=== PATIENT | male | born 1980 | race Caucasian/White ===

== ENCOUNTER 2017-11-04 12:06 | Emergency (ER) | payer BC ==
[2017-11-04 12:11] VITALS: BP 129/79; PULSE 86; RESP 16; TEMP 98.8
[2017-11-04] MEDS ORDERED: ORPHENADRINE 30 MG/ML 2 ML VIAL IM STA (12:18)
[2017-11-04] MEDS ORDERED: KETOROLAC 60 MG/2 ML VIAL IM STA (12:18)
--- NOTE | 2017-11-04 12:35 | ED ---
General Adult HPI - General Chief complaint: Back Pain/Injury Stated complaint: Back injury Time Seen by Provider: 11/04/17 12:15 Source: patient, RN notes reviewed Mode of arrival: ambulatory Limitations: no limitations - History of Present Illness Initial comments: 36 yo male presents to the ER with cc of low back pain after shoveling. He states he was shoveling after he felt some low back pain. He does chronically suffer from back issues in the bases is much like how his back typically flares up. Little band across the back of his lower back. There is no loss of consciousness. No numbness or tingling no changes in bowel or bladder habits anesthesia.He states that he was concerned due to his continued discomfort so he thought that he should be evaluated. Patient denies any recent fever, chills , shortness of breath, chest pain, abdominal pain, nausea vomiting, numbness or tingling, dysuria or hematuria, constipation or diarrhea, headaches or visual changes, or any other current symptoms. - Related Data Home Medications Medication Instructions Recorded Confirmed Albuterol Nebulized [Ventolin 2.5 mg INHALATION RT-TID PRN 08/26/16 08/26/16 Nebulized] Varenicline [Chantix] 0.5 mg PO BID 08/26/16 08/26/16 Previous Rx's Medication Instructions Recorded Ibuprofen [Motrin] 600 mg PO Q6HR PRN #40 day 08/26/16 Ibuprofen [Motrin] 600 mg PO Q6HR PRN #20 tab 11/04/17 Orphenadrine [Norflex] 100 mg PO Q12H #10 tablet.er 11/04/17 Allergies Allergy/AdvReac Type Severity Reaction Status Date / Time No Known Allergies Allergy Verified 11/04/17 12:09 Review of Systems ROS Statement: Those systems with pertinent positive or pertinent negative responses have been documented in the HPI. ROS Other: All systems not noted in ROS Statement are negative. Past Medical History Past Medical History: No Reported History Additional Past Medical History / Comment(s): back pain History of Any Multi-Drug Resistant Organisms: None Reported Past Surgical History: No Surgical Hx Reported Past Psychological History: No Psychological Hx Reported Smoking Status: Current every day smoker Past Alcohol Use History: None Reported Past Drug Use History: None Reported General Exam Limitations: no limitations General appearance: alert, in no apparent distress ENT exam: Present: normal exam, mucous membranes moist Neck exam: Present: normal inspection. Absent: tenderness, meningismus, lymphadenopathy Respiratory exam: Present: normal lung sounds bilaterally. Absent: respiratory distress, wheezes, rales, rhonchi, stridor Cardiovascular Exam: Present: regular rate, normal rhythm, normal heart sounds. Absent: systolic murmur, diastolic murmur, rubs, gallop, clicks Extremities exam: Present: normal inspection, full ROM, normal capillary refill. Absent: tenderness, pedal edema, joint swelling, calf tenderness Back exam: Present: normal inspection, full ROM, paraspinal tenderness (lumbar bialteral). Absent: rash noted Neurological exam: Present: alert, oriented X3 Psychiatric exam: Present: normal affect, normal mood Skin exam: Present: warm, dry, intact, normal color. Absent: rash Course Vital Signs 11/04/17 12:09 Temperature 98.8 F Pulse Rate 86 Respiratory 16 Rate Blood Pressure 129/79 O2 Sat by Pulse 97 Oximetry Medical Decision Making - Medical Decision Making 36-year-old male presents with what appears to be a lumbar strain. At this time patient was given medications x-rays reviewed. We discussed follow-up and return parameters all questions. Patient stated that he understood and he is agreement this plan. All questions have been answered. At this time the patient will be discharged. - Radiology Data Radiology results: report reviewed, image reviewed Disposition Clinical Impression: Lumbar strain Disposition: HOME SELF-CARE Condition: Stable Instructions: Lower Back Exercises (ED), Core Strengthening Exercises (ED) Additional Instructions: Please use medication as discussed. Please follow up with family doctor if symptoms have not improved over the next two days. Please return to the emergency room if your symptoms increase or worsen or for any other concerns. Prescriptions: Ibuprofen [Motrin] 600 mg PO Q6HR PRN #20 tab PRN Reason: Pain Orphenadrine [Norflex] 100 mg PO Q12H #10 tablet.er Referrals: Ramila Talavera MD [Primary Care Provider] - 1-2 days Time of Disposition: 12:47
--- NOTE | 2017-11-04 12:45 | XR ---
EXAMINATION TYPE: XR lumbar spine 2 or 3V DATE OF EXAM: 11/04/2017 CLINICAL HISTORY: pain TECHNIQUE: Three views of the lumbar spine are submitted. COMPARISON: None. FINDINGS: There are 5 lumbar type vertebral bodies identified. The lumbar spine shows satisfactory alignment w ithout evidence of acute fracture or dislocation. Vertebral body heights are within normal limits. Disc spaces are within normal limits. Mild scattered ventral spondylosis noted. The overlying soft ti ssue appears unremarkable. IMPRESSION: No acute fracture or dislocation is seen in the lumbar spine. ICD 10 NO FRACTURE, INITIAL EVALUATION
== END 2017-11-04 12:51 | disposition home or self-care (01) ==
LOC: EC 12:06
DX: S39.012A Strain of muscle, fascia and tendon of lower back, initial encounter (principal); F17.200 Nicotine dependence, unspecified, uncomplicated; Z79.899 Other long term (current) drug therapy; Y93.H1 Activity, digging, shoveling and raking
CPT/HCPCS: 72100; 99283; 96372 ×2; J2360; J1885

== ENCOUNTER 2019-01-01 18:45 | Emergency (ER) | payer BC, OTHER ==
[2019-01-01 18:55] VITALS: BP 142/96; PULSE 88; RESP 18; TEMP 97.9
--- NOTE | 2019-01-01 19:56 | XR ---
EXAMINATION TYPE: XR hand complete LT, XR wrist complete LT DATE OF EXAM: 01/01/2019 CLINICAL HISTORY: Pain and swelling of the left hand and wrist after injury. Pain is worse in the sec ond and third fingers. TECHNIQUE: Frontal, lateral and oblique images of the left hand and wrist are obtained. Scaphoid vie w was also obtained. COMPARISON: None. FINDINGS: There is a comminuted fracture of the distal tuft of the third digit as well as a lesser de gree of the second digit of the left hand. Mild overlying soft tissue swelling is noted. These fractu res are comminuted but only minimally nondisplaced (1 mm). No radiopaque foreign body. There is no a cute fracture/dislocation evident in the main left hand and wrist. The joint spaces in the left hand and wrist appear within normal limits. The overlying soft tissue appears unremarkable. IMPRESSION: Comminuted minimally displaced fractures of the left distal jade of the second and third distal phalanges with overlying soft tissue swelling.
--- NOTE | 2019-01-01 20:37 | ED ---
General Adult HPI - General Chief complaint: Extremity Injury, Upper Stated complaint: Wrist injury Time Seen by Provider: 01/01/19 19:02 Source: patient, RN notes reviewed, old records reviewed Mode of arrival: ambulatory Limitations: no limitations - History of Present Illness Initial comments: 38-year-old male patient no pertinent past medical history presents to ED with pain in his wrist. Patient was involved in occupational injury on Thursday12/27/18. Patient reports that his left hand was caught in a piece of machinery resulting in a laceration to his second and third distal phalanx. Patient also reportedly had minimally displaced fractures of distal tuft of second third distal phalanx. Patient had these sutures and splinted at [facility]. Patient has an appointment to see an orthopedic surgeon next week. Patient presents today because he now has pain in the dorsal aspect of his left wrist. Patient wants to ensure that there not any additional fractures that were missed. Patient denies any other complaints. Systemic: Pt denies fatigue, fever/chills, rash. Pt denies weakness, night sweats, weight loss. Neuro: Pt denies headache, visual disturbances, syncope or pre-syncope. HEENT: Pt denies ocular discharge or irritation, otalgia, rhinorrhea, pharyngitis or notable lymphadenopathy. Cardiopulmonary: Pt denies chest pain, SOB, heart palpitations, dyspnea on exertion. Abdominal/GI: Pt denies abdominal pain, n/v/d. : Pt denies dysuria, burning w/ urination, frequency/urgency. Denies new onset urinary or bowel incontinence. MSK: Pt denies loss of strength or function in extremities. Neuro: Pt denies new onset weakness, paresthesias. - Related Data Home Medications Medication Instructions Recorded Confirmed Albuterol Nebulized [Ventolin 2.5 mg INHALATION RT-TID PRN 08/26/16 08/26/16 Nebulized] Varenicline [Chantix] 0.5 mg PO BID 08/26/16 08/26/16 Previous Rx's Medication Instructions Recorded Ibuprofen [Motrin] 600 mg PO Q6HR PRN #40 day 08/26/16 Ibuprofen [Motrin] 600 mg PO Q6HR PRN #20 tab 11/04/17 Orphenadrine [Norflex] 100 mg PO Q12H #10 tablet.er 01/10/18 Allergies Allergy/AdvReac Type Severity Reaction Status Date / Time No Known Allergies Allergy Verified 01/01/19 18:55 Review of Systems ROS Statement: Those systems with pertinent positive or pertinent negative responses have been documented in the HPI. ROS Other: All systems not noted in ROS Statement are negative. Past Medical History Past Medical History: No Reported History Additional Past Medical History / Comment(s): back pain History of Any Multi-Drug Resistant Organisms: None Reported Past Surgical History: No Surgical Hx Reported Past Psychological History: No Psychological Hx Reported Smoking Status: Current every day smoker Past Alcohol Use History: None Reported Past Drug Use History: None Reported General Exam - General Exam Comments Initial Comments: Constitutional: NAD, AOX3, Pt has pleasant affect. HEENT: NC/AT, trachea midline, neck supple, no lymphadenopathy. Posterior pharynx non erythematous, without exudates. External ears appear normal, without discharge. Mucous membranes moist. Eyes PERRLA, EOM intact. There is no scleral icterus. No pallor noted. Cardiopulmonary: RRR, no murmurs, rubs or gallops, no JVD noted. Lungs CTAB in anterior and posterior morelos. No peripheral edema. Abdominal exam: Abdomen soft and non-distended. Abdomen non-tender to palpation in all 4 quadrants. Bowel sounds active in LLQ. No hepatosplenomegaly. No ecchymosis Neuro: CN II-XII grossly intact. No nuchal rigidity. MSK: Dorsal aspect of left wrist mild tenderness to palpation. No edema or ecchymoses. No snuffbox tenderness. Full active range of motion. Laceration sites appear clean, sutures intact, no signs of infection. Full active range of motion of digits. Patient placed in straight finger splint. Neuro vascular intact after splint placement. No posterior calf tenderness bilaterally, homans sign negative bilaterally. Posterior tibialis and radial pulse +2 bilaterally. Sensation intact in upper and lower extremities. Full active ROM in upper and lower extremities, 5/5 stregnth. Limitations: no limitations Course Vital Signs 01/01/19 18:52 Temperature 97.9 F Pulse Rate 88 Respiratory 18 Rate Blood Pressure 142/96 O2 Sat by Pulse 98 Oximetry Medical Decision Making - Medical Decision Making 38-year-old male patient no pertinent past medical history presents to ED with pain in his wrist. Patient was involved in occupational injury on Thursday12/27/18. Patient reports that his left hand was caught in a piece of machinery resulting in a laceration to his second and third distal phalanx. Patient also reportedly had minimally displaced fractures of distal tuft of second third distal phalanx. Patient had these sutures and splinted at [facility]. Patient has an appointment to see an orthopedic surgeon next week. Patient presents today because he now has pain in the dorsal aspect of his left wrist. Patient wants to ensure that there not any additional fractures that were missed. Patient denies any other complaints. Patient vital signs stable, afebrile. Physical exam displayed: Dorsal aspect of left wrist mild tenderness to palpation. No edema or ecchymoses. No snuffbox tenderness. Full active range of motion. Laceration sites appear clean, sutures intact, no signs of infection. Full active range of motion of digits. Patient placed in straight finger splint. Neuro vascular intact after splint placement. Plain film of left hand and wrist displayed comminuted minimally displaced fracture of left distal jade of the second third distal phalanx overlying soft tissue swelling. Patient placed in straight finger splint on second and third digits. Neuro vascular intact after splint placement. Patient has follow-up scheduled orthopedic surgeon next week. Patient to return to ED if descends symptoms develop or if condition worsens in any way. Case dsicussed with Dr. Jauregui. Disposition Clinical Impression: Phalanx, distal fracture of finger Disposition: HOME SELF-CARE Condition: Stable Instructions (If sedation given, give patient instructions): Finger Fracture (ED) Additional Instructions: Patient to adhere to previously discussed treatment plan and will take medication(s) as directed. Patient to follow up with PCP in 1-2 days. Patient to return to ED if symptoms do not improve. Please follow-up with primary care provider in 1-2 days. Please follow-up with occupational health. Please attend scheduled follow up with orthopedic surgeon. Return to ED if condition worsens in anyway. Continue taking keflex. Is patient prescribed a controlled substance at d/c from ED?: No Referrals: Ramila Talavera MD [Primary Care Provider] - 1-2 days
== END 2019-01-01 20:44 | disposition home or self-care (01) ==
LOC: EC 18:45
DX: S62.631A Displaced fracture of distal phalanx of left index finger, initial encounter for closed fracture (principal); S62.633A Displaced fracture of distal phalanx of left middle finger, initial encounter for closed fracture; F17.200 Nicotine dependence, unspecified, uncomplicated; Z79.899 Other long term (current) drug therapy; W31.9XXA Contact with unspecified machinery, initial encounter; Y92.69 Other specified industrial and construction area as the place of occurrence of the external cause; Y99.0 Civilian activity done for income or pay
CPT/HCPCS: 99284

== ENCOUNTER → 2019-04-01 | Outpatient (CLI) | payer BC ==
--- NOTE | 2019-04-01 13:48 | ECHOF ---
Referral Reason:R94.31 Abnormal EKG; R42 dizziness MEASUREMENTS -------- HEIGHT: 182.9 cm WEIGHT: 122.5 kg BP: 124/74 RVIDd: 3.0 cm (< 3.3) IVSd: 1.1 cm (0.6 - 1.1) LVIDd: 5.4 cm (3.9 - 5.3) LVPWd: 1.1 cm (0.6 - 1.1) IVSs: 1.7 cm LVIDs: 3.2 cm LVPWs: 2.0 cm LA Diam: 3.5 cm (2.7 - 3.8) LAESV Index (A-L): 17.61 ml/m Ao Diam: 3.3 cm (2.0 - 3.7) AV Cusp: 2.4 cm (1.5 - 2.6) MV EXCURSION: 25.683 mm (> 18.000) MV EF SLOPE: 236 mm/s (70 - 150) EPSS: 1.2 cm MV E Segundo: 0.72 m/s MV DecT: 319 ms MV A Segundo: 0.57 m/s MV E/A Ratio: 1.27 FINDINGS -------- Sinus rhythm. This was a technically good study. The left ventricular size is normal. There is borderline concentric left ventricular hypertrophy. Overall left ventricular systolic function is normal with, an EF between 60 - 65 %. The right ventricle is normal in size. Normal LA size by volume 22+/-6 ml/m2. The right atrium is normal in size. Interatrial and interventricular septum intact. The aortic valve is trileaflet and appears structurally normal. There is trace mitral regurgitation. The tricuspid valve appears structurally normal. There is no pulmonic regurgitation present. The aortic root size is normal. Normal inferior vena cava with normal inspiratory collapse consistent with estimated right atrial pre ssure of 5 mmHg. There is no pericardial effusion. CONCLUSIONS -------- 1. Sinus rhythm. 2. This was a technically good study. 3. The left ventricular size is normal. 4. There is borderline concentric left ventricular hypertrophy. 5. Overall left ventricular systolic function is normal with, an EF between 60 - 65 %. 6. The right ventricle is normal in size. 7. Normal LA size by volume 22+/-6 ml/m2. 8. The right atrium is normal in size. 9. Interatrial and interventricular septum intact. 10. The aortic valve is trileaflet and appears structurally normal. 11. There is trace mitral regurgitation. 12. The tricuspid valve appears structurally normal. 13. There is no pulmonic regurgitation present. 14. The aortic root size is normal. 15. Normal inferior vena cava with normal inspiratory collapse consistent with estimated right atrial pressure of 5 mmHg. 16. There is no pericardial effusion. CHANNEL PROCESS PLANT OPERATOR: Mago Brown RDCS
== END | disposition home or self-care (01) ==
LOC: RADECHMAIN 10:23
PROVIDERS: ATTEND Internal Medicine
DX: I51.7 Cardiomegaly (principal); R42 Dizziness and giddiness; R94.31 Abnormal electrocardiogram [ECG] [EKG]
CPT/HCPCS: 93306

== ENCOUNTER 2021-06-22 11:00 | Emergency (ER) | payer OTHER ==
[2021-06-22 11:14] VITALS: BP 149/85; PULSE 100; RESP 20; TEMP 98.4
[2021-06-22] MEDS ORDERED: LIDOCAINE 1% INJ 10MG/ML (20 ML MDV) SQ STA (11:34)
[2021-06-22] MEDS ORDERED: DIPH,PERTUS(ACELL)TETVAC-LF 0.5 ML VIAL IM ONE (11:34)
--- NOTE | 2021-06-22 12:15 | XR ---
Left elbow HISTORY: Pain, laceration, trauma 3 views of left elbow There is no evident joint effusion. No radiopaque foreign body. Bone mineralization, joint spaces and alignment are maintained. Lucency in the soft tissues consistent with patient's history of lacsharono n. IMPRESSION: No fracture or dislocation.
--- NOTE | 2021-06-22 12:51 | ED ---
General Adult HPI - General Chief complaint: Wound/Laceration Stated complaint: Lt Arm Laceration Time Seen by Provider: 06/22/21 11:16 Source: patient, RN notes reviewed Mode of arrival: ambulatory Limitations: no limitations - History of Present Illness Initial comments: 40-year-old male presents to the emergency room for a chief complaint of elbow pain. Patient slipped at the boat launch and fell on the left elbow. Patient states he did cut his elbow. Patient did not hit his head. He does admit to small amount of pain in the elbow.Patient has no other complaints at this time including shortness of breath, chest pain, abdominal pain, nausea or vomiting, headache, or visual changes. - Related Data Home Medications Medication Instructions Recorded Confirmed Albuterol Nebulized [Ventolin 2.5 mg INHALATION RT-TID PRN 08/26/16 08/26/16 Nebulized] Varenicline [Chantix] 0.5 mg PO BID 08/26/16 08/26/16 Previous Rx's Medication Instructions Recorded Ibuprofen [Motrin] 600 mg PO Q6HR PRN #40 day 08/26/16 Ibuprofen [Motrin] 600 mg PO Q6HR PRN #20 tab 11/04/17 Orphenadrine [Norflex] 100 mg PO Q12H #10 tablet.er 11/04/17 Allergies Allergy/AdvReac Type Severity Reaction Status Date / Time No Known Allergies Allergy Verified 06/22/21 11:13 Review of Systems ROS Statement: Those systems with pertinent positive or pertinent negative responses have been documented in the HPI. ROS Other: All systems not noted in ROS Statement are negative. Past Medical History Past Medical History: No Reported History Additional Past Medical History / Comment(s): back pain History of Any Multi-Drug Resistant Organisms: None Reported Past Surgical History: No Surgical Hx Reported Past Psychological History: No Psychological Hx Reported Smoking Status: Current every day smoker Past Alcohol Use History: None Reported Past Drug Use History: None Reported General Exam Limitations: no limitations General appearance: alert, in no apparent distress Head exam: Present: atraumatic Eye exam: Present: normal appearance, PERRL, EOMI. Absent: scleral icterus, conjunctival injection ENT exam: Present: normal exam, mucous membranes moist Neck exam: Present: normal inspection, full ROM. Absent: tenderness Respiratory exam: Present: normal lung sounds bilaterally. Absent: respiratory distress, wheezes Cardiovascular Exam: Present: regular rate, normal rhythm, normal heart sounds Extremities exam: Present: full ROM (Range of motion of the left elbow), tenderness (Tenderness to the medial malleolus of the left elbow), normal capillary refill (Capillary refill less than 2 second radial pulse 2+ and upper extremity), other (Sensation intact of upper extremity) Course Vital Signs 06/22/21 11:12 Temperature 98.4 F Pulse Rate 100 Respiratory 20 Rate Blood Pressure 149/85 O2 Sat by Pulse 99 Oximetry Procedures - Laceration Laceration #1 Consent Obtained: verbal consent Indication: laceration Site: upper extremity (4) Size (cm): 3 Description: linear Depth: simple, single layer Anesthetic Used: lidocaine 1% Anesthesia Technique: local infiltration Amount (mls): 6 Pre-repair: wound explored, irrigated extensively Type of Sutures: nylon Size of Sutures: 4-0 Number of Sutures: 6 Technique: simple, interrupted Patient Tolerated Procedure: well, no complications Medical Decision Making - Medical Decision Making X-ray negative for fracture. Laceration irrigated and repaired. parameters discussed for returning for suture removal as well as care. Disposition Clinical Impression: Laceration Disposition: HOME SELF-CARE Condition: Good Instructions (If sedation given, give patient instructions): Care For Your Stitches (ED), Laceration (ED) Additional Instructions: Please follow-up with your doctor in one to 2 days. Return to the emergency room for any worsening symptoms. Return in 10 days for suture removal Is patient prescribed a controlled substance at d/c from ED?: No Referrals: Carlo Negron MD [Primary Care Provider] - 1-2 days Time of Disposition: 12:50
== END 2021-06-22 13:00 | disposition home or self-care (01) ==
LOC: EC 11:00
DX: S51.012A Laceration without foreign body of left elbow, initial encounter (principal); F17.200 Nicotine dependence, unspecified, uncomplicated; Z23 Encounter for immunization; W01.0XXA Fall on same level from slipping, tripping and stumbling without subsequent striking against object, initial encounter; Y92.814 Boat as the place of occurrence of the external cause
CPT/HCPCS: 73080; 90715; 12002; 90471; 99284; J2001

== ENCOUNTER → 2021-12-27 | Outpatient (CLI) | payer BC | END | disposition home or self-care (01) | LOC: LABWHC1 14:49 | PROVIDERS: ATTEND Family Medicine | DX: R07.9 Chest pain, unspecified (principal) | CPT/HCPCS: 36415; 93005 ==

== ENCOUNTER → 2022-01-27 | Outpatient (CLI) | payer BC ==
--- NOTE | 2022-01-27 12:26 | ECHOF ---
Referral Reason:R03.0, H53.9, R07.9 MEASUREMENTS -------- HEIGHT: 195.6 cm WEIGHT: 124.7 kg BP: RVIDd: 2.7 cm (< 3.3) IVSd: 1.1 cm (0.6 - 1.1) LVIDd: 4.9 cm (3.9 - 5.3) LVPWd: 1.2 cm (0.6 - 1.1) IVSs: 1.7 cm LVIDs: 3.3 cm LVPWs: 1.9 cm LA Diam: 3.0 cm (2.7 - 3.8) Ao Diam: 3.5 cm (2.0 - 3.7) AV Cusp: 1.5 cm (1.5 - 2.6) MV EXCURSION: 17.007 mm (> 18.000) MV EF SLOPE: 60 mm/s (70 - 150) EPSS: 0.9 cm MV E Segundo: 0.74 m/s MV DecT: 148 ms MV A Segundo: 0.68 m/s MV E/A Ratio: 1.09 FINDINGS -------- Sinus rhythm. This was a technically difficult study with suboptimal views. The left ventricular size is normal. There is borderline concentric left ventricular hypertrophy. Overall left ventricular systolic function is normal with, an EF between 55 - 60 %. The right ventricle is normal in size. The left atrial size is normal. The right atrium was not well visualized. 3 ml of Lumason was utilized for enhancement of images. The aortic valve was not well visualized. The mitral valve was not well visualized. The tricuspid valve was not well visualized. Unable to estimate RVSP due to inadequate TR jet spect ral doppler profile. The pulmonic valve was not well visualized. The aortic root size is normal. Normal inferior vena cava with normal inspiratory collapse consistent with estimated right atrial pre ssure of 5 mmHg. There is no pericardial effusion. CONCLUSIONS -------- 1. This was a technically difficult study with suboptimal views. 2. There is borderline concentric left ventricular hypertrophy. 3. Overall left ventricular systolic function is normal with, an EF between 55 - 60 %. 4. 3 ml of Lumason was utilized for enhancement of images. 5. The aortic valve was not well visualized. 6. There is no pericardial effusion. MANAGER EMPLOYEE RELATIONS: Mago Brown LYN
--- NOTE | 2022-01-27 13:14 | US ---
EXAMINATION TYPE: US carotid duplex BILAT DATE OF EXAM: 01/27/2022 COMPARISON: NONE CLINICAL HISTORY: 41-year-old male R07.9 CHEST PAIN. HTN, left visual disturbance TECHNIQUE: Carotid duplex ultrasound examination. Indirect Doppler criteria was utilized. FINDINGS: EXAM MEASUREMENTS: RIGHT: Peak Systolic Velocity (PSV) cm/sec ----- Right CCA: 77.9 ----- Right ICA: 87.9 ----- Right ECA: 108.1 ICA/CCA ratio: 1.1 RIGHT: End Diastole cm/sec ----- Right CCA: 21.2 ----- Right ICA: 27.0 ----- Right ECA: 22.5 LEFT: Peak Systolic Velocity (PSV) cm/sec ----- Left CCA: 114.5 ----- Left ICA: 112.1 ----- Left ECA: 122.1 ICA/CCA ratio: 1.0 LEFT: End Diastole cm/sec ----- Left CCA: 31.2 ----- Left ICA: 31.8 ----- Left ECA: 20.4 VERTEBRALS (direction of flow): Right Vertebral: Antegrade Left Vertebral: Antegrade Rhythm: Normal Storage Garage Manager notes: No plaque, wall thickening, elevated velocities or significant stenosis. IMPRESSION: No hemodynamically significant internal carotid artery stenosis on either side. Criteria for Assigning % of Stenosis / Diameter reduction (Estimation based on the indirect measurements of the internal carotid artery velocities (ICA PSV). 1. Normal (no stenosis)=ICA PSV < 125 cm/s: ratio < 2.0: ICA EDV<40 cm/s. 2. Less than 50% stenosis=ICA PSV < 125 cm/s: ratio < 2.0: ICA EDV<40 cm/s. 3. 50 to 69% stenosis=ICA PSV of 125 to 230 cm/s: ration 2.0 ? 4.0: ICA EDV 40-100 cm/s. 4. Greater than 70% stenosis to near occlusion= ICA PSV > 230 cm/s: ratio > 4.0: ICA EDV > 100 cm/s. 5. Near occlusion= ICA PSV velocities may be low or undetectable: variable ratio and ICA EDV. 6. Total occlusion=unable to detect flow.
--- NOTE | 2022-01-27 14:59 | ECHOS ---
STRESS ECHOCARDIOGRAM INDICATIONS: Chest pain BASELINE HEART RATE: 77 BASELINE BLOOD PRESSURE: 140/88 MAXIMUM HEART RATE: 175 MAXIMUM BLOOD PRESSURE: 213/80 85% MPHR: 152 100% MPHR: 179 METS: 9.9 MAXIMUM STAGE REACHED: 3 TOTAL EXERCISE TIME: 8:24 CLINICAL INFORMATION: Baseline rhythm is sinus mechanism, rate of 77. Normal axis and intervals. Normal electrocardiogram. Baseline blood pressure 140/88 mmHg. Patient exercised on Reed protocol for 8 minutes 24 seconds, reaching peak rate of 175 beats per minute, which is equal to 98% of maximum predicted heart rate. Peak blood pressure 213/81 mmHg. Test was terminated secondary to fatigue. There was no chest pain. Electrocardiograph monitoring revealed no evidence of diagnostic ischemic ST deviation. FINDINGS: Baseline echocardiogram revealed normal wall thickness and motion. At peak exercise there was normal wall motion augmentation with no hypokinesis or dyskinesis. CONCLUSION: 1. Average exercise tolerance with normal electrocardiograph response to exercise. 2. Normal stress echocardiogram with no evidence of stress-induced ischemia. MMODL / IJN: [id number] /
== END | disposition home or self-care (01) ==
LOC: RADNMMAIN 09:26
PROVIDERS: ATTEND Family Medicine
DX: I11.9 Hypertensive heart disease without heart failure (principal); H53.9 Unspecified visual disturbance
CPT/HCPCS: 93306; 93351; 93880; Q9950

== ENCOUNTER 2022-10-24 20:03 | Emergency (ER) | payer BC ==
[2022-10-24 20:27] VITALS: BP 142/90; PULSE 105; RESP 20; TEMP 98.4
--- NOTE | 2022-10-24 22:07 | US ---
EXAMINATION TYPE: US venous doppler duplex LE RT DATE OF EXAM: 10/24/2022 10:00 PM COMPARISON: NONE CLINICAL HISTORY: pain. Pain in right leg x a couple days. No hx of DVT. Patient does not take blood thinners. SIDE PERFORMED: Right TECHNIQUE: The lower extremity deep venous system is examined utilizing real time linear array sonog susy with graded compression, doppler sonography and color-flow sonography. VESSELS IMAGED: Common Femoral Vein Deep Femoral Vein Greater Saphenous Vein * Femoral Vein Popliteal Vein Small Saphenous Vein * Proximal Calf Veins (* superficial vessels) Right Leg: No evidence of DVT in veins imaged. IMPRESSION: No evidence of deep vein thrombosis in the right leg.
[2022-10-24] MEDS ORDERED: SODIUM CHLORIDE 0.9% 1,000 ML IV STA (22:22)
[2022-10-24] MEDS ORDERED: KETOROLAC 15 MG/ML 1 ML VIAL IVP STA (22:23)
[2022-10-24 22:50] LABS: Basophils # (A) 0.1 k/uL (0-0.2); Basophils % (A) 0 %; Eosinophils # (A) 1.1 k/uL (0-0.7); Eosinophils % (A) 10 %; HCT 46.9 % (39.0-53.0); HGB 16.9 gm/dL (13.0-17.5); Lymphocytes # (A) 3.1 k/uL (1.0-4.8); Lymphocytes % (A) 28 %; MCH 32.4 pg (25.0-35.0); MCV 90.1 fL (80.0-100.0); Mean Platelet Volume 7.2; Monocytes # (A) 0.5 k/uL (0-1.0); Monocytes % (A) 5 %; Neutrophils % (A) 54 %; Platelet Count 208 k/uL (150-450); RDW 12.1 % (11.5-15.5)
[2022-10-24 23:19] LABS: ALT 40 U/L (4-49); AST 39 U/L (17-59); African American GFR (CKD) >90 (>60 ml/min/1.73 sqM); Albumin 4.6 g/dL (3.5-5.0); Alkaline Phosphatase 62 U/L (38-126); Anion Gap 9 mmol/L; Blood Urea Nitrogen 17 mg/dL (9-20); Calcium 9.2 mg/dL (8.4-10.2); Carbon Dioxide 22 mmol/L (22-30); Chloride 108 mmol/L (98-107); Glucose 102 mg/dL (74-99); Magnesium 2.1 mg/dL (1.6-2.3); Non-African American GFR(CKD) >90 (>60 ml/min/1.73 sqM); Sodium 139 mmol/L (137-145); Total Bilirubin 0.5 mg/dL (0.2-1.3); Total Protein 7.8 g/dL (6.3-8.2)
[2022-10-24 23:27] LABS: Potassium 4.9 mmol/L (3.5-5.1)
--- NOTE | 2022-10-24 23:35 | ED ---
Extremity Problem HPI - General Chief complaint: Extremity Problem,Nontraumatic Stated complaint: rt leg pain Time Seen by Provider: 10/24/22 21:32 Source: patient Mode of arrival: ambulatory Limitations: no limitations - History of Present Illness Initial comments: Patient is a 41-year-old male who presents to the emergency department with a chief complaint of calf pain for 3 days. He denies injury. Pain is a cramping that occurs at rest and is worse with movement. He has not taken any pain medication. He has not noticed any swelling or skin changes. He denies history of DVT and PE. Does not use blood thinners. No long car rides or recent a irplane travel. Denies tobacco use. Denies history of cardiac disease. - Related Data Home Medications Medication Instructions Recorded Confirmed Albuterol Nebulized [Ventolin 2.5 mg INHALATION RT-TID PRN 08/26/16 08/26/16 Nebulized] Varenicline [Chantix] 0.5 mg PO BID 08/26/16 08/26/16 Previous Rx's Medication Instructions Recorded Ibuprofen [Motrin] 600 mg PO Q6HR PRN #40 day 08/26/16 Ibuprofen [Motrin] 600 mg PO Q6HR PRN #20 tab 11/04/17 Orphenadrine [Norflex] 100 mg PO Q12H #10 tablet.er 11/04/17 Ibuprofen [Motrin] 800 mg PO Q8H PRN #30 tab 10/24/22 Allergies Allergy/AdvReac Type Severity Reaction Status Date / Time No Known Allergies Allergy Verified 10/24/22 20:27 Review of Systems ROS Statement: Those systems with pertinent positive or pertinent negative responses have been documented in the HPI. ROS Other: All systems not noted in ROS Statement are negative. Past Medical History Past Medical History: No Reported History Additional Past Medical History / Comment(s): back pain History of Any Multi-Drug Resistant Organisms: None Reported Past Surgical History: No Surgical Hx Reported Past Psychological History: No Psychological Hx Reported Smoking Status: Current every day smoker Past Alcohol Use History: None Reported Past Drug Use History: None Reported General Exam Limitations: no limitations General appearance: alert, in no apparent distress Respiratory exam: Present: normal lung sounds bilaterally. Absent: respiratory distress, wheezes, rales, rhonchi, stridor Cardiovascular Exam: Present: regular rate, normal rhythm, normal heart sounds. Absent: systolic murmur, diastolic murmur, rubs, gallop, clicks Extremities exam: Present: normal inspection, full ROM, normal capillary refill, calf tenderness (Right. Positive Homans sign). Absent: pedal edema, joint swelling Neurological exam: Present: alert, oriented X3, CN II-XII intact Psychiatric exam: Present: normal affect, normal mood Course Vital Signs 10/24/22 20:25 Temperature 98.4 F Pulse Rate 105 H Respiratory 20 Rate Blood Pressure 142/90 O2 Sat by Pulse 96 Oximetry Medical Decision Making - Medical Decision Making Was pt. sent in by a medical professional or institution? No Did you speak to anyone other than the patient for history? No Did you review nursing and triage notes? Yes, and I agree. Symptoms consistent with nursing and triage notes. Were old charts reviewed? No Differential Diagnosis? MSK injury, DVT, hypomagnesemia EKG interpreted by me (3pts min.)? NA X-rays interpreted by me (1pt min.)? NA CT interpreted by me (1pt min.)? NA U/S interpreted by me (1pt. min.)? Radiology report of right lower extremity ultrasound with Doppler is negative for DVT and other acute process. What testing was considered but not performed? (CT, X-rays, U/S, labs)? Why? I considered x-ray of the lower extremity however patient does not have tenderness over his tibia and fibula. He does not recall any injury of the lower extremity. What meds were considered but not given? Why? None Did you discuss the management of the patient with other professionals? No Did you reconcile home meds? No, patient discharged. Was smoking cessation discussed for >3mins.? No, patient denies tobacco use Was critical care preformed (if so, how long)? No Were there social determinants of health that impacted care today? How? ( Homelessness, low income, unemployed, alcoholism, drug addiction, transportation, low edu. Level, literacy, decrease access to med. care, usp, rehab)? No Was there de-escalation of care discussed even if they declined? (Discuss DNR or withdrawal of care, Hospice)? No What co-morbidities impacted this encounter? (DM, HTN, Smoking, COPD, CAD, Cancer, CVA, Hep., AIDS, mental health diagnosis, sleep apnea, morbid obesity)? None Was patient admitted / discharged? This is a 41-year-old male presenting with right calf pain. No DVT on ultrasound. No significant electrolyte abnormalities. Patient will be discharged with Motrin 800. He'll follow-up with his primary care provider. Undiagnosed new problem with uncertain prognosis? No Drug Therapy requiring intensive monitoring for toxicity (Heparin, Nitro, Insu nikole, Cardizem)? No Were any procedures done? No Diagnosis/symptom? Right calf pain Acute, or Chronic, or Acute on Chronic? Acute Uncomplicated (without systemic symptoms) or Complicated (systemic symptoms)? uncomplicated Side effects of treatment? No Exacerbation, Progression, or Severe Exacerbation] NA Poses a threat to life or bodily function? No Dr. Dill is my attending. - Lab Data Result diagrams: 10/24/22 22:26 10/24/22 22:26 Lab Results 10/24/22 10/24/22 Range/Units 22:26 22:26 WBC 11.0 H (3.8-10.6) k/uL RBC 5.20 (4.30-5.90) m/uL Hgb 16.9 (13.0-17.5) gm/dL Hct 46.9 (39.0-53.0) % MCV 90.1 (80.0-100.0) fL MCH 32.4 (25.0-35.0) pg MCHC 36.0 (31.0-37.0) g/dL RDW 12.1 (11.5-15.5) % Plt Count 208 (150-450) k/uL MPV 7.2 Neutrophils % 54 % Lymphocytes % 28 % Monocytes % 5 % Eosinophils % 10 % Basophils % 0 % Neutrophils # 6.0 (1.3-7.7) k/uL Lymphocytes # 3.1 (1.0-4.8) k/uL Monocytes # 0.5 (0-1.0) k/uL Eosinophils # 1.1 H (0-0.7) k/uL Basophils # 0.1 (0-0.2) k/uL Sodium 139 (137-145) mmol/L Potassium 4.9 (3.5-5.1) mmol/L Chloride 108 H (98-107) mmol/L Carbon Dioxide 22 (22-30) mmol/L Anion Gap 9 mmol/L BUN 17 (9-20) mg/dL Creatinine 0.95 (0.66-1.25) mg/dL Est GFR (CKD-EPI)AfAm >90 (>60 ml/min/1.73 sqM) Est GFR (CKD-EPI)NonAf >90 (>60 ml/min/1.73 sqM) Glucose 102 H (74-99) mg/dL Calcium 9.2 (8.4-10.2) mg/dL Magnesium 2.1 (1.6-2.3) mg/dL Total Bilirubin 0.5 (0.2-1.3) mg/dL AST 39 (17-59) U/L ALT 40 (4-49) U/L Alkaline Phosphatase 62 (38-126) U/L Total Protein 7.8 (6.3-8.2) g/dL Albumin 4.6 (3.5-5.0) g/dL Disposition Clinical Impression: Right calf pain Disposition: HOME SELF-CARE Condition: Good Instructions (If sedation given, give patient instructions): Leg Pain (ED) Additional Instructions: Take medication as directed. Follow-up with primary care provider in one to 2 days. Return to the emergency department if you experience new, concerning, or worsening symptoms. Prescriptions: Ibuprofen [Motrin] 800 mg PO Q8H PRN #30 tab PRN Reason: Pain Is patient prescribed a controlled substance at d/c from ED?: No Referrals: Galen Bliss MD [Primary Care Provider] - 1-2 days Time of Disposition: 23:35
== END 2022-10-24 23:45 | disposition home or self-care (01) ==
LOC: EC 20:03
DX: M79.604 Pain in right leg (principal); F17.200 Nicotine dependence, unspecified, uncomplicated
CPT/HCPCS: 36415; 80053; 83735; 85025; 93971; 99284; 96374; 96361; J1885

== ENCOUNTER 2023-07-09 11:21 | Observation (INO) | payer BC ==
--- NOTE | 2023-07-09 11:46 | ED ---
General Adult HPI - General Source: family, RN notes reviewed Mode of arrival: ambulatory Limitations: no limitations <Juan Lindo - Last Filed: 07/09/23 11:45> <Yannick Vasquez - Last Filed: 07/09/23 16:24> - General Stated complaint: Neck/L Shoulder Pain Time Seen by Provider: 07/09/23 11:45 - History of Present Illness Initial comments: 42-year-old male presents emergency Department with chief complaint of left- sided chest pain shortness breath shoulder pain. Patient states nothing makes it feel better or worse. Patient was sent here from for urgent care to rule out blood clot. (Juan Lindo) This is a 42-year-old male presents emergency Department complaining of left- sided chest pain and radiates back of the shoulder. Patient states it hurts take a deep breath hurts to move. Patient states the pain is very sharp in nature. Patient denies any fever but states she's been sick for about a week with a cough. Patient states coughing definitely makes it worse. Patient states is not short of breath but it hurts take a breath. Patient denies any abdominal pain patient denies any nausea vomiting. Patient denies headache patient denies numbness weakness. (Yannick Vasquez) - Related Data Home Medications Medication Instructions Recorded Confirmed Albuterol Nebulized [Ventolin 2.5 mg INHALATION RT-TID PRN 08/26/16 08/26/16 Nebulized] Varenicline [Chantix] 0.5 mg PO BID 08/26/16 08/26/16 Previous Rx's Medication Instructions Recorded Ibuprofen [Motrin] 600 mg PO Q6HR PRN #40 day 08/26/16 Ibuprofen [Motrin] 600 mg PO Q6HR PRN #20 tab 11/04/17 Orphenadrine [Norflex] 100 mg PO Q12H #10 tablet.er 11/04/17 Ibuprofen [Motrin] 800 mg PO Q8H PRN #30 tab 10/24/22 Allergies Allergy/AdvReac Type Severity Reaction Status Date / Time No Known Allergies Allergy Verified 07/09/23 12:17 Review of Systems ROS Other: All systems not noted in ROS Statement are negative. <Juan Lindo - Last Filed: 07/09/23 11:45> ROS Other: All systems not noted in ROS Statement are negative. <Yannick Vasquez - Last Filed: 07/09/23 16:24> ROS Statement: Those systems with pertinent positive or pertinent negative responses have been documented in the HPI. Past Medical History Past Medical History: No Reported History Additional Past Medical History / Comment(s): back pain History of Any Multi-Drug Resistant Organisms: None Reported Past Surgical History: No Surgical Hx Reported Past Psychological History: No Psychological Hx Reported Smoking Status: Current every day smoker Past Alcohol Use History: None Reported Past Drug Use History: None Reported <Juan Lnido - Last Filed: 07/09/23 11:45> General Exam <BelgicaJuan Sudha - Last Filed: 07/09/23 11:45> <Yannick Vasquez - Last Filed: 07/09/23 16:24> - General Exam Comments Initial Comments: Visual Physical Exam Vital signs reviewed General: Well-appearing, nontoxic, no acute distress. Head: Normocephalic, atraumatic Eyes: PERRLA, EOMI ENT: Airway patent Chest: Nonlabored breathing Skin: No visual rash, normal skin tone Neuro: Alert and oriented 3 Musculoskeletal: No gross abnormalities (Juan Lindo) GENERAL: Patient is well-developed and well-nourished. Patient is nontoxic and well- hydrated and is in moderate distress. ENT: Neck is soft and supple. No significant lymphadenopathy is noted. Oropharynx is clear. Moist mucous membranes. Neck has full range of motion without eliciting any pain. EYES: The sclera were anicteric and conjunctiva were pink and moist. Extraocular movements were intact and pupils were equal round and reactive to light. Eyelids were unremarkable. PULMONARY: Unlabored respirations. Good breath sounds bilaterally. No audible rales rhonchi or wheezing was noted. CARDIOVASCULAR: There is a regular rate and rhythm without any murmurs gallops or rubs. ABDOMEN: Soft and nontender with normal bowel sounds. SKIN: Skin is clear with no lesions or rashes and otherwise unremarkable. NEUROLOGIC: Patient is alert and oriented x3. Cranial nerves II through XII are grossly int act. Motor and sensory are also intact. Normal speech, volume and content. Symmetrical smile. MUSCULOSKELETAL: Normal extremities with adequate strength and full range of motion. LYMPHATICS: No significant lymphadenopathy is noted PSYCHIATRIC: Normal psychiatric evaluation. (Yannick Vasquez) Course Vital Signs 07/09/23 07/09/23 12:14 15:03 Temperature 99 F 98.3 F Pulse Rate 92 88 Respiratory 18 18 Rate Blood Pressure 123/79 141/105 O2 Sat by Pulse 96 96 Oximetry Medical Decision Making <Juan Lindo - Last Filed: 07/09/23 11:45> - Lab Data Result diagrams: 07/09/23 12:55 07/09/23 12:55 <Yannick Vasquez - Last Filed: 07/09/23 16:24> - Medical Decision Making I performed a quick note portion of this chart signed Juan Lindo PA-C (Juan Lindo) EKG shows sinus rhythm at 90 bpm GA interval 127 QRSs 111 QT interval 373 QTC is 421. Patient's EKG shows no ST segment elevation or depression. Was pt. sent in by a medical professional or institution ([facility], [employer], urgent care, hospital, or senior care...) When possible be specific @ -[No] Did you speak to anyone other than the patient for history (EMS, parent, family, police, friend...)? What history was obtained from this source @ -[No] Did you review nursing and triage notes (agree or disagree)? Why? @ -[I reviewed and agree with nursing and triage notes] Were old charts reviewed (outside hosp., previous admission, EMS record, old EKG, old radiological studies, urgent care reports/EKG's, senior care records)? Report findings @ -[No old charts were reviewed] Differential Diagnosis (chest pain, altered mental status, abdominal pain women, abdominal pain men, vaginal bleeding, weakness, fever, dyspnea, syncope, headache, dizziness, GI bleed, back pain, seizure, CVA, palpatations, mental health, musculoskeletal)? @ -Differential Dyspnea: Coronary syndrome, arrhythmia, tamponade, asthma, COPD, pulmonary embolism, pneumonia, pneumothorax, pulmonary effusion, anaphylaxis, diabetic ketoacidosis, flailed chest, pulmonary contusion, diaphragmatic rupture, anemia, neuromuscular, this is not meant to be an all-inclusive list. Differential Chest Pain: Stable Angina, Unstable Angina, STEMI, NSTEMI Aortic Dissection, Pneumothorax, Musculoskeletal, Esophageal Spasm GERD, Cholecystitis, Pancreatitis, Zoster, this is not meant to be an all-inclusive list. EKG interpreted by me (3pts min.). @ -[As above] X-rays interpreted by me (1pt min.). @ -Chest x-ray shows a left-sided infiltrate CT interpreted by me (1pt min.). @ -CT of the chest shows no obvious PE and it does show infiltrate in the left base which is consistent with where the patient's pain is U/S interpreted by me (1pt. min.). @ -[None done] What testing was considered but not performed or refused? (CT, X-rays, U/S, labs)? Why? @ -[None] What meds were considered but not given or refused? Why? @ -[None] Did you discuss the management of the patient with other professionals (professionals i.e. , PA, STEEL WORKER, lab, RT, psych nurse, social service assistant, criminal lawyer, teacher, sales and service officer, director of casework department)? Give summary @ -I spoke with Dr. Rasmussen he agreed to admit the patient admitted the patient wrote admitting orders Was smoking cessation discussed for >3mins.? @ -[No] Was critical care preformed (if so, how long)? @ -[No] Were there social determinants of health that impacted care today? How? (Homelessness, low income, unemployed, alcoholism, drug addiction, transportation, low edu. Level, literacy, decrease access to med. care, usp, rehab)? @ -[No] Was there de-escalation of care discussed even if they declined (Discuss DNR or withdrawal of care, Hospice)? DNR status @ -[No] What co-morbidities impacted this encounter? (DM, HTN, Smoking, COPD, CAD, Cancer, CVA, ARF, Chemo, Hep., AIDS, mental health diagnosis, sleep apnea, morbid obesity)? @ -[None] Was patient admitted / discharged? Hospital course, mention meds given and route, prescriptions, significant lab abnormalities, going to OR and other pertinent info. @ -Patient received Toradol and a couple doses of Dilaudid Kwell the pain. Patient also was started on antibiotics Rocephin and Zithromax. Undiagnosed new problem with uncertain prognosis? @ -[No] Drug Therapy requiring intensive monitoring for toxicity (Heparin, Nitro, Insulin, Cardizem)? @ -[No] Were any procedures done? @ -[No] Diagnosis/symptom? @ -Pneumonia Acute, or Chronic, or Acute on Chronic? @ -Acute Uncomplicated (without systemic symptoms) or Complicated (systemic symptoms)? @ -Complicated Side effects of treatment? @ -[No] Exacerbation, Progression, or Severe Exacerbation? @ -[No] Poses a threat to life or bodily function? How? (Chest pain, [place], [place], pneumonia, PE, COPD, DKA, ARF, appy, cholecystitis, CVA, Diverticulitis, Homicidal, Suicidal, threat to staff... and all critical care pts) @ -Yes That could lead to sepsis and end organ dysfunction (Yannick Vasquez) - Lab Data Lab Results 07/09/23 07/09/23 07/09/23 Range/Units 12:55 12:55 12:55 WBC 12.0 H (3.8-10.6) k/uL RBC 5.22 (4.30-5.90) m/uL Hgb 16.4 (13.0-17.5) gm/dL Hct 48.7 (39.0-53.0) % MCV 93.3 (80.0-100.0) fL MCH 31.5 (25.0-35.0) pg MCHC 33.7 (31.0-37.0) g/dL RDW 12.4 (11.5-15.5) % Plt Count 247 (150-450) k/uL MPV 7.0 Neutrophils % 63 % Lymphocytes % 23 % Monocytes % 6 % Eosinophils % 6 % Basophils % 0 % Neutrophils # 7.6 (1.3-7.7) k/uL Lymphocytes # 2.8 (1.0-4.8) k/uL Monocytes # 0.7 (0-1.0) k/uL Eosinophils # 0.7 (0-0.7) k/uL Basophils # 0.0 (0-0.2) k/uL PT 10.8 (9.0-12.0) sec INR 1.0 (<1.2) APTT 26.4 (22.0-30.0) sec D-Dimer 0.79 H (<0.60) mg/L FEU Sodium 136 L (137-145) mmol/L Potassium 4.3 (3.5-5.1) mmol/L Chloride 104 (98-107) mmol/L Carbon Dioxide 24 (22-30) mmol/L Anion Gap 8 mmol/L BUN 14 (9-20) mg/dL Creatinine 0.96 (0.66-1.25) mg/dL Est GFR (CKD-EPI)AfAm >90 (>60 ml/min/1.73 sqM) Est GFR (CKD-EPI)NonAf >90 (>60 ml/min/1.73 sqM) Glucose 101 H (74-99) mg/dL Calcium 9.7 (8.4-10.2) mg/dL Magnesium 1.9 (1.6-2.3) mg/dL Total Bilirubin 0.8 (0.2-1.3) mg/dL AST 31 (17-59) U/L ALT 32 (4-49) U/L Alkaline Phosphatase 64 (38-126) U/L Troponin I (0.000-0.034) ng/mL NT-Pro-B Natriuret Pep 27 pg/mL Total Protein 7.7 (6.3-8.2) g/dL Albumin 4.6 (3.5-5.0) g/dL 07/09/23 Range/Units 12:55 WBC (3.8-10.6) k/uL RBC (4.30-5.90) m/uL Hgb (13.0-17.5) gm/dL Hct (39.0-53.0) % MCV (80.0-100.0) fL MCH (25.0-35.0) pg MCHC (31.0-37.0) g/dL RDW (11.5-15.5) % Plt Count (150-450) k/uL MPV Neutrophils % % Lymphocytes % % Monocytes % % Eosinophils % % Basophils % % Neutrophils # (1.3-7.7) k/uL Lymphocytes # (1.0-4.8) k/uL Monocytes # (0-1.0) k/uL Eosinophils # (0-0.7) k/uL Basophils # (0-0.2) k/uL PT (9.0-12.0) sec INR (<1.2) APTT (22.0-30.0) sec D-Dimer (<0.60) mg/L FEU Sodium (137-145) mmol/L Potassium (3.5-5.1) mmol/L Chloride (98-107) mmol/L Carbon Dioxide (22-30) mmol/L Anion Gap mmol/L BUN (9-20) mg/dL Creatinine (0.66-1.25) mg/dL Est GFR (CKD-EPI)AfAm (>60 ml/min/1.73 sqM) Est GFR (CKD-EPI)NonAf (>60 ml/min/1.73 sqM) Glucose (74-99) mg/dL Calcium (8.4-10.2) mg/dL Magnesium (1.6-2.3) mg/dL Total Bilirubin (0.2-1.3) mg/dL AST (17-59) U/L ALT (4-49) U/L Alkaline Phosphatase (38-126) U/L Troponin I <0.012 (0.000-0.034) ng/mL NT-Pro-B Natriuret Pep pg/mL Total Protein (6.3-8.2) g/dL Albumin (3.5-5.0) g/dL Disposition <Juan Lindo - Last Filed: 07/09/23 11:45> Time of Disposition: 16:24 <Yannick Vasquez - Last Filed: 07/09/23 16:24> Clinical Impression: Pneumonia, Chest pain Disposition: ADMITTED IP TO THIS HOSP Referrals: Galen Bliss MD [Primary Care Provider] - 1-2 days
[2023-07-09 13:09] LABS: Basophils % (A) 0 %; Eosinophils # (A) 0.7 k/uL (0-0.7); Eosinophils % (A) 6 %; HCT 48.7 % (39.0-53.0); HGB 16.4 gm/dL (13.0-17.5); Lymphocytes # (A) 2.8 k/uL (1.0-4.8); Lymphocytes % (A) 23 %; MCH 31.5 pg (25.0-35.0); MCHC 33.7 g/dL (31.0-37.0); MCV 93.3 fL (80.0-100.0); Monocytes # (A) 0.7 k/uL (0-1.0); Monocytes % (A) 6 %; Neutrophils # (A) 7.6 k/uL (1.3-7.7); Neutrophils % (A) 63 %; Platelet Count 247 k/uL (150-450); RBC 5.22 m/uL (4.30-5.90); RDW 12.4 % (11.5-15.5)
[2023-07-09 13:22] LABS: Partial Thromboplastin Time 26.4 sec (22.0-30.0); Prothrombin Time 10.8 sec (9.0-12.0)
[2023-07-09 13:28] LABS: ALT 32 U/L (4-49); AST 31 U/L (17-59); African American GFR (CKD) >90 (>60 ml/min/1.73 sqM); Albumin 4.6 g/dL (3.5-5.0); Alkaline Phosphatase 64 U/L (38-126); Anion Gap 8 mmol/L; Blood Urea Nitrogen 14 mg/dL (9-20); Calcium 9.7 mg/dL (8.4-10.2); Carbon Dioxide 24 mmol/L (22-30); Chloride 104 mmol/L (98-107); Glucose 101 mg/dL (74-99); Magnesium 1.9 mg/dL (1.6-2.3); Non-African American GFR(CKD) >90 (>60 ml/min/1.73 sqM); Potassium 4.3 mmol/L (3.5-5.1); Sodium 136 mmol/L (137-145); Total Bilirubin 0.8 mg/dL (0.2-1.3); Total Protein 7.7 g/dL (6.3-8.2)
--- NOTE | 2023-07-09 13:32 | XR ---
EXAMINATION TYPE: XR chest 2V DATE OF EXAM: 07/09/2023 COMPARISON: 10/22/2013 HISTORY: Chest pain TECHNIQUE: Frontal and lateral views of the chest are obtained. FINDINGS: There is no focal air space opacity. Linear atelectasis in the region of the lingula. No evidence for pneumothorax. No pleural effusion. The cardiac silhouette size is within normal limits. The osseous structures are grossly intact. IMPRESSION: 1. Linear atelectasis in the region of the lingula. No focal consolidation evident.
[2023-07-09 13:36] LABS: NT-Pro-B-Type Natriuretic Pept 27 pg/mL
--- NOTE | 2023-07-09 14:20 | CT ---
EXAMINATION TYPE: CT chest angio for PE DATE OF EXAM: 07/09/2023 COMPARISON: None HISTORY: SOB, Chest pain, productive cough CT DLP: 617 mGycm CONTRAST: CT chest with contrast and 3D reconstruction with MIP imaging is performed without and with IV Contra st, patient injected with 100 ml mL of Isovue 370. Contrast-enhanced CT of the chest was performed through the course of the pulmonary arteries with lorri g and mediastinal window settings submitted. 3D reconstruction with MIP imaging was also performed. PULMONARY ARTERIES: Examination is limited given port of the contrast bolus. No large central embolus is seen. LUNGS: Atelectasis or developing infiltrate Left lower lobe. Scattered groundglass infiltrates seen. No pulmonary nodule or mass is detected. No pleural effusion. MEDIASTINUM: Thoracic aorta is of normal caliber,however, evaluation is limited given timing of the contrast bolus. If there is concern for thoracic aortic pathology consider LISSET. Correlate clinicall y . The heart is not enlarged. No evidence for mediastinal mass. No mediastinal lymph nodes greater than 1cm. HILAR STRUCTURES: No evidence for mass. No hilar lymph nodes greater than 1 cm. UPPER ABDOMEN: No significant abnormality is seen. IMPRESSION: 1. Examination is limited given port of the contrast bolus. No large central embolus is seen. 2. Scattered areas of atelectasis or developing infiltrate at the lung bases.
[2023-07-09] MEDS ORDERED: KETOROLAC 15 MG/ML 1 ML VIAL IVP STA (15:37)
[2023-07-09] MEDS ORDERED: HYDROmorphone 0.5 MG/0.5 ML SYRINGE IVP STA ×2 (15:38→16:17)
[2023-07-09] MEDS ORDERED: AZITHROMYCIN 500 MG in SODIUM CHLORIDE 0.9% 250 ML IVPB STA (15:41)
[2023-07-09] MEDS ORDERED: PNEUMONIA PROTOCOL UTILIZED 1 EACH MISC PO PRN (16:24)
[2023-07-09] MEDS: KETOROLAC 15 MG/ML 1 ML VIAL IVP SCH ×2 (17:14→23:24)
[2023-07-09] MEDS ORDERED: ALBUTEROL NEBULIZED 2.5 MG/3 ML INHALATION PRN (20:00)
[2023-07-09] MEDS ORDERED: SYMBICORT 80-4.5 MCG INHALER INHALATION PRN (20:00)
[2023-07-09] MEDS ORDERED: IPRATROPIUM-ALBUTEROL 3 ML NEB INHALATION PRN (20:07)
--- NOTE | 2023-07-09 23:08 | P.HPIM ---
History of Present Illness H&P Date: 07/09/23 Chief Complaint: Chest pain Patient is a 42-year-old male with a known history of chronic back pain, current everyday smoker presents to ER with complaints of left lateral chest pain and also left upper chest pain and shoulder pain. Patient has been having symptoms since yesterday. Pain gets worse with deep breathing and is sharp in nature. Patient did take muscle relaxant last night without much relief. Patient states he has been having cough and feeling sick for the past 1 week. Did have surgery to fevers. Pain gets worse with coughing and unable to take a deep breath. Otherwise denies any nausea or vomiting or abdominal pain. No diarrhea. Patient went to urgent care facility and was sent to ER for further evaluation to rule out blood clot. Patient denies any leg swelling. No numbness or tingling or headache. Patient does smoke on daily basis. Chest x-ray showed linear atelectasis in the region of the lingula. No focal consolidation is evident. D-dimer level is 0.79. Other laboratory data showed WBC 12.0 hemoglobin 16.4 and platelets 247 Sodium 136 potassium 4.3 chloride 104 bicarb is 24 BUN 14 and creatinine 0.96 and blood sugar 101 Liver lesions not elevated. Troponin x2 negative and proBNP is 27. Influenza A B, RSV and COVID-19 PCR not detected. CTA chest showed examination is limited given port of the contrast bolus. No large central embolus is seen. Scattered areas of atelectasis or developing infiltrate in the lung bases. Review of Systems Constitutional: Patient did have subjective fevers and chills at home.. no Generalized weakness. Abdomen: Patient denied any nausea or vomiting or abd. pain Cardiovascular: Patient denies any chest pain or short of breath no palpitations. Respiratory: Complains of cough without sputum production and shortness of breath. Neurological. No headache. No numbness or tingling. Musculoskeletal: Patient denies any complaints of joint swelling or deformity. Skin: Negative Psychiatric: Negative Endocrine: No heat or cold intolerance. No recent weight gain. Genitourinary: No dysuria or hematuria. All other 14 point ROS negative except the above Past Medical History Past Medical History: No Reported History Additional Past Medical History / Comment(s): back pain History of Any Multi-Drug Resistant Organisms: None Reported Past Surgical History: No Surgical Hx Reported Past Psychological History: No Psychological Hx Reported Smoking Status: Current every day smoker Past Alcohol Use History: None Reported Past Drug Use History: None Reported Medications and Allergies Home Medications Medication Instructions Recorded Confirmed Type Albuterol Nebulized [Ventolin 2.5 mg INHALATION RT-Q6H PRN 08/26/16 07/09/23 History Nebulized] Albuterol Sulfate [Albuterol 1 - 2 puff PO RT-Q4H PRN 07/09/23 07/09/23 History Sulfate Hfa] Fluticasone/Umeclidin/Vilanter 1 puff INHALATION RT-DAILY PRN 07/09/23 07/09/23 History [Trelegy Ellipta 200-62.5-25] Allergies Allergy/AdvReac Type Severity Reaction Status Date / Time No Known Allergies Allergy Verified 07/09/23 16:55 Physical Exam Vitals: Vital Signs Temp Pulse Resp BP Pulse Ox 07/09/23 18:32 98.5 F 75 20 95 07/09/23 18:09 73 16 114/74 94 L 07/09/23 16:48 99.4 F 07/09/23 16:35 100.2 F H 07/09/23 16:22 91 18 132/95 97 07/09/23 15:03 98.3 F 88 18 141/105 96 07/09/23 12:14 99 F 92 18 123/79 96 Intake and Output 07/09/23 07/09/23 07/09/23 06:59 14:59 22:59 Other: Weight 127.006 kg PHYSICAL EXAMINATION: Patient is lying in the bed comfortably, no acute distress, awake alert and oriented.. HEENT: Normocephalic. Neck is supple. Pupils reactive. Nostrils clear. Oral cavity is moist. Neck reveals no JVD, carotid bruits, or thyromegaly. CHEST EXAMINATION: Trachea is central. Symmetrical expansion. Bilateral prolonged expiration and shallow breathing.. CARDIAC: Normal S1, S2 with no gallops. No murmurs ABDOMEN: Soft. Bowel sounds present. Nontender. No organomegaly. No abdominal bruits. Extremities: reveal no edema. No clubbing or cyanosis Neurologically awake, alert, oriented x3 with well-coordinated movements. No focal deficits noted Skin: No rash or skin lesions. Psychiatric: Coperative. Nonsuicidal, Musculoskeletal: No joint swelling or deformity. Normal range of motion. Results CBC & Chem 7: 07/09/23 12:55 07/09/23 12:55 Labs: Abnormal Lab Results - Last 24 Hours (Table) 07/09/23 07/09/23 07/09/23 Range/Units 12:55 12:55 12:55 WBC 12.0 H (3.8-10.6) k/uL D-Dimer 0.79 H (<0.60) mg/L FEU Sodium 136 L (137-145) mmol/L Glucose 101 H (74-99) mg/dL Thrombosis Risk Factor Assmnt - DVT/VTE Prophylaxis DVT/VTE Prophylaxis: Pharmacologic Prophylaxis ordered Assessment and Plan Assessment: Left-sided pneumonia with a developing infiltrate as per CTA chest. Severe pleuritic chest pain secondary to above. No evidence of PE as per CTA chest. Ongoing nicotine addiction Chronic back pain DVT prophylaxis with heparin subcu Plan: Patient will be continued IV hydration with normal saline antibiotics ceftriaxone and azithromycin. Continue pain management with Toradol. Was given a dose of IV Dilaudid in the ER which seemed to improve his symptoms. Follow-up urine Legionella antigen. Sputum culture was ordered. Follow-up CBC and BMP. Continue with DuoNebs as needed and smoking cessation was counseled extensively. Time with Patient: Greater than 30
[2023-07-09] MEDS: HEPARIN SODIUM,PORCINE 5,000 UNIT/ML 1 ML VIAL SQ SCH (23:24)
[2023-07-09] MEDS: SODIUM CHLORIDE 0.9% 1,000 ML IV SCH (23:24)
[2023-07-10] MEDS: KETOROLAC 15 MG/ML 1 ML VIAL IVP SCH ×4 (05:03→23:55)
--- NOTE | 2023-07-10 07:28 | XR ---
EXAMINATION TYPE: XR chest 2V DATE OF EXAM: 07/10/2023 COMPARISON: 07/09/2023 HISTORY: Chest pain TECHNIQUE: Frontal and lateral views of the chest are obtained. FINDINGS: There is no focal air space opacity. Increased basilar density may reflect underlying atelectasis or developing infiltrate. The cardiac silhouette size is within normal limits. The osseous structures are grossly intact. IMPRESSION: 1. Increased basilar density may reflect underlying atelectasis or developing infiltrate.
[2023-07-10] MEDS: HEPARIN SODIUM,PORCINE 5,000 UNIT/ML 1 ML VIAL SQ SCH ×3 (08:27→23:55)
[2023-07-10] MEDS: AZITHROMYCIN 500 MG TAB PO SCH (08:27)
[2023-07-10 08:41] LABS: Basophils # (A) 0.05 X 10*3/uL (0.00-0.10); Basophils % (A) 0.5 %; Eosinophils # (A) 0.61 X 10*3/uL (0.04-0.35); Eosinophils % (A) 5.8 %; HCT 46.4 % (39.6-50.0); HGB 15.6 d/dL (13.0-17.0); Lymphocytes % (A) 26.4 %; MCHC 33.6 d/dL (32.0-37.0); MCV 92.1 FL (80.0-97.0); Mean Platelet Volume 9.3 FL (9.5-12.2); Monocytes # (A) 1.13 X 10*3/uL (0.20-1.00); Monocytes % (A) 10.7 %; NRBC Per 100 WBC 0 X 10*3/uL (0.00-0.01); Neutrophils # (A) 5.96 X 10*3/uL (1.80-7.70); Neutrophils % (A) 56.2 %; Platelet Count 235 X 10*3/uL (140-440); RBC 5.04 X 10*6/uL (4.40-5.60); RDW 12.6 % (11.5-14.5); WBC 10.59 X 10*3/uL (4.50-10.00)
[2023-07-10 08:52] LABS: BUN/Creat Ratio 13.85 Ratio (12.00-20.00); Calcium 9.2 mg/dL (8.7-10.3); Carbon Dioxide 25.2 mmol/L (21.6-31.8); Chloride 102 mmol/L (96-109); Glucose 100 mg/dL (70-110); Potassium 4.2 mmol/L (3.5-5.5); Sodium 138 mmol/L (135-145)
[2023-07-10] MEDS: SODIUM CHLORIDE 0.9% 1,000 ML IV SCH (11:29)
[2023-07-10] MEDS: IPRATROPIUM-ALBUTEROL 3 ML NEB INHALATION SCH ×3 (11:48→18:46)
[2023-07-10] MEDS: BUDESONIDE 0.5 MG/2 ML NEBU INHALATION SCH ×2 (15:45→18:46)
[2023-07-10] MEDS: FORMOTEROL FUMARATE 20 MCG/2 ML NEBU INHALATION SCH ×2 (15:46→18:52)
--- NOTE | 2023-07-11 05:31 | P.PN ---
Subjective Progress Note Date: 07/10/23 Patient is a 42-year-old male with a known history of chronic back pain, current everyday smoker presents to ER with complaints of left lateral chest pain and also left upper chest pain and shoulder pain. Patient has been having symptoms since yesterday. Pain gets worse with deep breathing and is sharp in nature. Patient did take muscle relaxant last night without much relief. Patient states he has been having cough and feeling sick for the past 1 week. Did have surgery to fevers. Pain gets worse with coughing and unable to take a deep breath. Otherwise denies any nausea or vomiting or abdominal pain. No diarrhea. Patient went to urgent care facility and was sent to ER for further evaluation to rule out blood clot. Patient denies any leg swelling. No numbness or tingling or headache. Patient does smoke on daily basis. Chest x-ray showed linear atelectasis in the region of the lingula. No focal consolidation is evident. D-dimer level is 0.79. Other laboratory data showed WBC 12.0 hemoglobin 16.4 and platelets 247 Sodium 136 potassium 4.3 chloride 104 bicarb is 24 BUN 14 and creatinine 0.96 and blood sugar 101 Liver lesions not elevated. Troponin x2 negative and proBNP is 27. Influenza A B, RSV and COVID-19 PCR not detected. CTA chest showed examination is limited given port of the contrast bolus. No large central embolus is seen. Scattered areas of atelectasis or developing infiltrate in the lung bases. 07/10/2023 Patient is seen in follow-up today reports to feeling slightly improved although continues to report some shortness of breath and lung pain mostly on the left side. Patient continues to have cough with no significant production. Patient did have breathing treatments as needed will change to scheduled and also add Pulmicort. Patient is continued on ceftriaxone and Zithromax and will continue follow-up chest x-ray showing continued density concerns of atelectasis and infiltrate. Will add incentive spirometer and encourage the patient to continue using at least 10 times every hour while awake. Patient did have a mildly elevated white count and will follow-up and repeat labs. Encouraged to increase activity as tolerated and will monitor overnight with possible discharge planning in 24 hours. Review of systems: Constitutional: No reports of fatigue, fever, or chills Cardiovascular: No reports of chest pain or palpitations Respiratory: reports of shortness of breath with exertion and left-sided lung pain GI: No reports of nausea, vomiting, or diarrhea : No reports of dysuria or retention Neurovascular: No reports of weakness or numbness All medications have been reviewed PHYSICAL EXAMINATION: Patient is sitting up in the bed, no acute distress, awake alert and oriented.. Obese HEENT: Normocephalic. Neck is supple. Pupils reactive. Nostrils clear. Oral cavity is moist. Neck reveals no JVD, carotid bruits, or thyromegaly. CHEST EXAMINATION: Trachea is central. Symmetrical expansion. Bilateral prolonged expiration and shallow breathing.. Diminished breath sounds bilaterally CARDIAC: Normal S1, S2 with no gallops. No murmurs ABDOMEN: Soft. Bowel sounds present. Obese. Nontender. No organomegaly. No abdominal bruits. Extremities: reveal no edema. No clubbing or cyanosis Neurologically awake, alert, oriented x3 with well-coordinated movements. No focal deficits noted Skin: No rash or skin lesions. Psychiatric: Cooperative. Non-suicidal Musculoskeletal: No joint swelling or deformity. Normal range of motion. Assessment: Left-sided pneumonia with a developing infiltrate as per CTA chest. Severe pleuritic chest pain secondary to above. No evidence of PE as per CTA chest. Ongoing nicotine addiction Chronic back pain Obesity with a BMI of 33.2 DVT prophylaxis with heparin subcu GI prophylaxis Full code Plan: Patient will be continued IV hydration with normal saline as well as antibiotics in the form of ceftriaxone and azithromycin. Continue pain management with Toradol. Was given a dose of IV Dilaudid in the ER which seemed to improve his symptoms. Follow-up urine Legionella antigen was negative. Blood cultures are negative and sputum culture uncollected. Patient reports not getting much phlegm production. White count mildly elevated although improved from yesterday and will follow-up with repeat labs in a.m. encouraged increase activity as tolerated Continue with DuoNebs although will make it scheduled and also add Pulmicort and Perforomist. Again, smoking cessation was counseled extensively. Patient requesting to go home although agreeable to stay overnight for monit oring as chest x-ray continued to show infiltrate as well as some atelectasis. Will add incentive spirometer and encourage the bases at least 10 times every hour while awake. Possible discharge in the next 24 hours. Patient will need follow-up in the outpatient setting with pulmonary for further evaluation and PFT testing The impression and plan of care has been dictated by Renata Ryees, Nurse Practitioner as directed. Dr. Valery MD I have performed a history and examination and MDM of this patient, discussed the same with the dictator, and agree with the dictator's assessment and plan as written ,documented as a scribe. Based on total visit time, I have performed more than 50% of the visit. Objective - Vital Signs Vital signs: Vital Signs Temp 98.5 F 07/10/23 07:00 Pulse 70 07/10/23 11:56 Resp 18 07/10/23 07:00 BP 119/73 07/10/23 07:00 Pulse Ox 92 L 07/10/23 08:50 FiO2 Intake & Output 07/09/23 07/10/23 07/10/23 18:59 06:59 18:59 Output Total 350 Balance -350 Weight 127.006 kg Output: Urine 350 Other: Voiding Method Toilet Toilet # Voids 2 3 - Labs CBC & Chem 7: 07/10/23 02:28 07/10/23 02:28 Labs: Abnormal Lab Results - Last 24 Hours (Table) 07/10/23 Range/Units 02:28 WBC 10.59 H (4.50-10.00) X 10*3/uL MPV 9.3 L (9.5-12.2) FL Monocytes # 1.13 H (0.20-1.00) X 10*3/uL Eosinophils # 0.61 H (0.04-0.35) X 10*3/uL
[2023-07-11] MEDS: KETOROLAC 15 MG/ML 1 ML VIAL IVP SCH (05:39)
[2023-07-11 07:47] VITALS: BP 124/82; RESP 16; TEMP 99.2
[2023-07-11] MEDS: IPRATROPIUM-ALBUTEROL 3 ML NEB INHALATION SCH ×2 (08:21→11:42)
[2023-07-11] MEDS: BUDESONIDE 0.5 MG/2 ML NEBU INHALATION SCH (08:21)
[2023-07-11 08:35] LABS: Basophils # (A) 0.1 k/uL (0-0.2); Basophils % (A) 1 %; Eosinophils # (A) 0.4 k/uL (0-0.7); Eosinophils % (A) 4 %; HCT 45.3 % (39.0-53.0); HGB 15.1 gm/dL (13.0-17.5); Lymphocytes # (A) 2.1 k/uL (1.0-4.8); Lymphocytes % (A) 21 %; MCH 31.5 pg (25.0-35.0); MCHC 33.3 g/dL (31.0-37.0); MCV 94.6 fL (80.0-100.0); Mean Platelet Volume 6.8; Monocytes # (A) 0.7 k/uL (0-1.0); Monocytes % (A) 7 %; Neutrophils # (A) 6.7 k/uL (1.3-7.7); Neutrophils % (A) 66 %; Platelet Count 266 k/uL (150-450); RBC 4.79 m/uL (4.30-5.90); RDW 12.4 % (11.5-15.5); WBC 10.2 k/uL (3.8-10.6)
[2023-07-11] MEDS: FORMOTEROL FUMARATE 20 MCG/2 ML NEBU INHALATION SCH (08:36)
[2023-07-11 08:44] LABS: African American GFR (CKD) >90 (>60 ml/min/1.73 sqM); Anion Gap 5 mmol/L; Blood Urea Nitrogen 19 mg/dL (9-20); Calcium 8.8 mg/dL (8.4-10.2); Carbon Dioxide 25 mmol/L (22-30); Chloride 108 mmol/L (98-107); Glucose 109 mg/dL (74-99); Non-African American GFR(CKD) 89 (>60 ml/min/1.73 sqM); Potassium 4.2 mmol/L (3.5-5.1); Sodium 138 mmol/L (137-145)
[2023-07-11] MEDS: AZITHROMYCIN 500 MG TAB PO SCH (09:12)
[2023-07-11] MEDS: HEPARIN SODIUM,PORCINE 5,000 UNIT/ML 1 ML VIAL SQ SCH (09:12)
[2023-07-11 11:57] VITALS: PULSE 86
== END 2023-07-11 12:42 | disposition home or self-care (01) ==
LOC: EC 11:21 → 6NMEDSUR 16:24
PROVIDERS: ADMIT Internal Medicine; ATTEND Internal Medicine
DX: J18.9 Pneumonia, unspecified organism (principal); G89.29 Other chronic pain; M54.9 Dorsalgia, unspecified; E66.9 Obesity, unspecified; F17.200 Nicotine dependence, unspecified, uncomplicated; Z68.33 Body mass index [BMI] 33.0-33.9, adult; Z79.899 Other long term (current) drug therapy; Z20.822 Contact with and (suspected) exposure to COVID-19
CPT/HCPCS: 96376 ×3; 96361; 96366; 96372; 96368; 96365; 96375; 99285; 36415; 94640 ×3; 94760; 93005; 85379; 83880; 80053; 80048 ×2; 87449; 83605; 83735; 84484 ×2; 85025 ×3; 85610; 85730; 87040; 87070; 87205; 87636; 71046 ×2; 71275; G0378 ×3; J1644 ×2; J0456; J0696 ×2; J1885 ×2; J1170; Q9967

== ENCOUNTER → 2023-12-11 | Outpatient (CLI) | payer BC ==
--- NOTE | 2023-12-11 15:05 | XR ---
EXAMINATION TYPE: XR chest 2V DATE OF EXAM: 12/11/2023 COMPARISON: NONE HISTORY: 07/10/2023. TECHNIQUE: Frontal and lateral views of the chest are obtained. FINDINGS: There is no focal air space opacity, pleural effusion, or pneumothorax seen. The cardiac silhouette size is within normal limits. The osseous structures are intact. IMPRESSION: No acute cardiopulmonary process.
== END | disposition home or self-care (01) ==
LOC: RADXRMAIN 14:33
PROVIDERS: ATTEND Family Medicine
DX: J18.9 Pneumonia, unspecified organism (principal)
CPT/HCPCS: 71046

== ENCOUNTER → 2024-01-26 | Outpatient (CLI) | payer BC | LOC: CPPFTMAIN 17:41 | PROVIDERS: ATTEND Family Medicine | DX: J45.909 Unspecified asthma, uncomplicated (principal); F17.200 Nicotine dependence, unspecified, uncomplicated; Z79.899 Other long term (current) drug therapy; Z79.51 Long term (current) use of inhaled steroids | CPT/HCPCS: 94060; 94726; 94729 ==

== ENCOUNTER → 2024-03-01 | Outpatient (CLI) | payer BC | END | disposition home or self-care (01) | LOC: LABWHC1 15:21 | PROVIDERS: ATTEND Family Medicine | DX: J44.1 Chronic obstructive pulmonary disease with (acute) exacerbation (principal) | CPT/HCPCS: 36415; 93005 ==

== ENCOUNTER → 2024-03-15 | Outpatient (CLI) | payer BC ==
[2024-03-15 20:13] LABS: HCT 48.7 % (39.6-50.0); HGB 16.1 g/dL (13.0-17.0); MCH 30.6 pg (27.0-32.0); MCHC 33.1 g/dL (32.0-37.0); MCV 92.6 FL (80.0-97.0); Mean Platelet Volume 9.8 FL (9.5-12.2); NRBC Per 100 WBC 0 X 10*3/uL (0.00-0.01); Platelet Count 242 X 10*3/uL (140-440); RBC 5.26 X 10*6/uL (4.40-5.60); RDW 13.2 % (11.5-14.5); WBC 13.09 X 10*3/uL (4.50-10.00)
[2024-03-15 20:46] LABS: Lymphocytes # (M) 5.76 X 10*3/uL (0.90-5.00)
[2024-03-15 21:40] LABS: Basophils # (M) 0.13 X 10*3/uL (0.00-0.10); Eosinophils # (M) 0.65 X 10*3/uL (0.04-0.35); Metamyelocytes % 1 % (0-0); Monocytes # (M) 0.92 X 10*3/uL (0.20-1.00); Neutrophils % (M) 42 %
[2024-03-16 01:37] LABS: Alternaria alternata IgE <0.10 kU/L; Aspergillus fumagatus IgE <0.10 kU/L; Birch IgE <0.10 kU/L; Cat Epith & Dander IgE <0.10 kU/L; Cladosporian herbarum IgE <0.10 kU/L; Cockroach IgE <0.10 kU/L; Dermato. farinae IgE <0.10 kU/L; Dog Dander IgE <0.10 kU/L; Elm IgE <0.10 kU/L; Maple (Box Elder) IgE <0.10 kU/L; Oak IgE <0.10 kU/L; Ragweed,Common IgE <0.10 kU/L; Red Top (Bentgrass) IgE <0.10 kU/L
== END | disposition home or self-care (01) ==
LOC: LABWHC1 13:37
PROVIDERS: ATTEND Internal Medicine
DX: J45.50 Severe persistent asthma, uncomplicated (principal)
CPT/HCPCS: 36415; 82785; 85025; 86003

== ENCOUNTER → 2024-05-19 | Outpatient (CLI) | payer BC ==
--- NOTE | 2024-05-20 17:28 | MR ---
EXAMINATION TYPE: MR cspine/lspine wo con DATE OF EXAM: 05/19/2024 4:55 PM CLINICAL INDICATION:Male, 43 years old with history of G35 MULTIPLE SCLEROSIS; PHH, MS, neck and low back pain that radiates down right leg COMPARISON: TECHNIQUE: Multi planar, multi sequence imaging was performed utilizing: T1-weighted, T2-weighted, a nd turbo inversion recovery imaging of the cervical and lumbar spine. MR contrast: IV Contrast: cc , None. FINDINGS: CERVICAL: Alignment: The cervical vertebral bodies have preserved heights. Alignment is within normal limits gi french patient positioning. Bones: Bone signal is within normal limits. No abnormal bone marrow edema on inversion recovery seque nces. Cord: The spinal cord is unremarkable with regards to their signal intensity and morphology. Discs: C2-C3: No significant disc pathology. The spinal canal is patent. No neural foraminal stenosis. C3-C4: No significant disc pathology. The spinal canal is patent. No neural foraminal stenosis. C4-C5: No significant disc pathology. The spinal canal is patent. No neural foraminal stenosis. C5-C6: No significant disc pathology. The spinal canal is patent. No neural foraminal stenosis. C6-C7: No significant disc pathology. The spinal canal is patent. No neural foraminal stenosis. C7-T1: No significant disc pathology. The spinal canal is patent. No neural foraminal stenosis. Other: None. LUMBAR: Alignment: The lumbar vertebral bodies have preserved heights and alignment. Cord: The conus medullaris and the distal spinal cord appear unremarkable with regards to their signa l intensity and morphology. Bones/Discs: Mild degeneration changes throughout the spine with osteophyte formation and facet joint arthropathy. Intervertebral disc signal is maintained. T12-L1: No evidence of significant spinal canal stenosis or neural foraminal stenosis. L1-L2: No evidence of significant spinal canal stenosis or neural foraminal stenosis. L2-L3: No evidence of significant spinal canal stenosis or neural foraminal stenosis. L3-L4: No evidence of significant spinal canal stenosis or neural foraminal stenosis. L4-L5: No evidence of significant spinal canal stenosis or neural foraminal stenosis. L5-S1: The disc is rounded posterior morphology without significant spinal canal stenosis. Facet el nt arthropathy with mild neural foraminal stenosis. No significant spinal canal or neural foraminal stenosis in the remainder of the visualized levels. Other findings: None. IMPRESSION: 1. No definitive evidence of disc herniation or significant spinal canal stenosis. 2. Multilevel disc degeneration with associated osteoarthritic changes.
== END | disposition home or self-care (01) ==
LOC: RADMRIMAIN 15:36
PROVIDERS: ATTEND Psychiatry & Neurology Neurology
DX: M51.37 Other intervertebral disc degeneration, lumbosacral region (principal); G35 Multiple sclerosis
CPT/HCPCS: 72141; 72148

== ENCOUNTER 2024-05-20 14:04 | Day surgery (SDC) | payer BC ==
[2024-05-17 13:25] VITALS: BMI 33.2
[~2024-05-20 14:04] MED LIST: LACTATED RINGERS 1,000 ML IV SCH; LIDOCAINE 1% (10MG/ML) FOR IV START INTRADERMA PRN
[2024-05-20] MEDS: IV FLUID CONTINUATION 1,000 ML IV ONE ×2 (15:53→16:23)
[2024-05-20 16:10] LABS: Glucose,Whole Blood 84 mg/dL (70-110)
[2024-05-20 16:16] VITALS: TEMP 97.6
[2024-05-20] MEDS ORDERED: PROPOFOL 10 MG/ML 20 ML VIAL IV ONE (16:24)
[2024-05-20] MEDS ORDERED: LIDOCAINE 1% INJ 10MG/ML (20 ML MDV) ONE (16:24)
--- NOTE | 2024-05-20 16:38 | P.PCN ---
Date of Procedure: 05/20/24 Procedure(s) Performed: BRIEF HISTORY: Patient is a 43-year-old, pleasant, white male scheduled for an upper endoscopy as a part of evaluation of function history of GERD and intermittent dysphagia to solids for the last few months duration.. PROCEDURE PERFORMED: Esophagogastroduodenoscopy with biopsy. PREOPERATIVE DIAGNOSIS: GERD/intermittent dysphagia to solids. IV sedation per anesthesia. PROCEDURE: After informed consent was obtained, the patient was brought into the endoscopy unit. IV sedation was administered by Anesthesia under continuous monitoring. Initially the Olympus GIF-140 video endoscope was inserted into the mouth. Esophagus intubated without any difficulty. It was gradually advanced into the stomach and duodenum and carefully examined. The bulb of the duodenum appeared normal. Small duodenal polyp identified in the second part of the duodenum that was biopsied. The scope at this time was withdrawn to the stomach, adequately insufflated with air, and upon careful examination, mucosa of the antrum, body, cardia and the fundus appeared normal. The scope was then withdrawn into the esophagus. Mild hiatal hernia noted. The GE junction was located at 39 cm from the incisors. The esophagus appeared normal. There were no erosions or ulcerations seen. Biopsies were done from the distal esophagus and the patient tolerated the procedure well. IMPRESSION: 1. Small hiatal hernia. 2. No evidence of esophagitis or esophageal stricture 3. Small duodenal polyp in the second part of the duodenum s/p biopsy. RECOMMENDATIONS: The findings of this examination were discussed with the patient as well as his family. He was advised to follow-up with the biopsy results. Continue with Protonix 40 mg daily and follow antireflux measures..
[2024-05-20 16:57] VITALS: BP 114/77; PULSE 82; RESP 18
== END 2024-05-20 17:06 | disposition home or self-care (01) ==
LOC: ORWHC2ENDO 14:04
PROVIDERS: ATTEND Internal Medicine Gastroenterology
DX: K29.80 Duodenitis without bleeding (principal); K44.9 Diaphragmatic hernia without obstruction or gangrene; J45.909 Unspecified asthma, uncomplicated; F17.210 Nicotine dependence, cigarettes, uncomplicated; M54.59 Other low back pain; Z79.51 Long term (current) use of inhaled steroids
CPT/HCPCS: 88305; 43239; J2001; J2704